=== PATIENT | female | born 1990 | race Hispanic/Latino ===

== ENCOUNTER → 2018-03-17 | Day surgery (SDC) | payer OTHER ==
[~2018-03-17] MED LIST: BUPIVACAINE 0.25% 30ML SDV INJ ONE; DEXAMETHASONE SOD PHOS INJ 4 MG/ML VIAL ONE; DIPHENHYDRAMINE HCL INJ 50 MG/ML VIAL ONE; FAMOTIDINE 20 MG/2 ML VIAL IV ONE; FENTANYL CITRATE/PF 100MCG/2 ML INJ ONE; KETOROLAC TROMETHAMINE 30 MG/ML VIAL ONE; LIDOCAINE HCL 2% JELLY 5 ML TUBE ONE; LIDOCAINE HCL 2% LOCAL INJ 5 ML SDV VIAL INJ ONE; MIDAZOLAM HCL 2 MG/2 ML VIAL ONE; MORPHINE SULFATE INJ 10 MG/ML ONE; MULTIVITAMINS1 EAC7 PO; ONDANSETRON HCL INJ 2 MG/ML VIAL ONE; PROPOFOL IV EMULSION 10 MG/ML 20 ML VIAL ONE; ROCURONIUM BROMIDE 10 MG/ML 5ML VIAL ONE; SEVOFLURANE INHAL SOLN 250 ML PEN BTL ONE
--- NOTE | 2018-03-17 09:51 | Operative Report ---
DATE OF PROCEDURE: March 17, 2018 PREOPERATIVE DIAGNOSES 1. Chronic tonsilliths. 2. Adenotonsillar hypertrophy. 3. Chronic adenotonsillitis. POSTOPERATIVE DIAGNOSES 1. Chronic tonsilliths. 2. Adenotonsillar hypertrophy. 3. Chronic adenotonsillitis. PROCEDURE: Tonsillectomy and adenoidectomy. SIGNIFICANT FINDINGS: Scarred tonsillar beds bilaterally. Copious tonsilliths bilaterally. Mildly enlarged adenoids. HOT BLAST WORKER: None. ANESTHESIA: General endotracheal tube anesthesia. SPECIMENS REMOVED: Tonsils (adenoids coblated). ESTIMATED BLOOD LOSS: Less than 1 mL. COMPLICATIONS: None. INDICATIONS: Patient is a 27-year-old female with an 8-year history of frequent tonsillar infections manifesting as sore throat, odynophagia and enlarged tender tonsillar lymphadenopathy, enlarged erythematous exudative tonsils. Patient experiences 6-7 episodes per year treated maximally with multiple courses of antibiotics. She has frequent tonsilliths. On examination, her tonsils are 3+/3+ and scarred with significant amount of the tonsil stones present within the crypts. She is scheduled for tonsillectomy and adenoidectomy for the treatment of chronic adenotonsillitis, adenotonsillar hypertrophy and chronic tonsilliths. Risks and complications of the procedures were thoroughly discussed with patient and include infection, bleeding, scarring, failure to improve, need for additional operations, damage to teeth, gums, tongue, and lips, chronic pain, voice changes, numbness of the tongue, inability to taste, persistent throat infections, scarring of the pharynx resulting in permanent worse nasal obstruction, leakage of fluid through the nose when drinking liquids, damage to the eustachian tube orifices causing middle ear fluid and hearing loss, need for blood transfusions, damage to surrounding nerves, blood vessels, and muscles. She fully understands and gives consent. PROCEDURE: Patient was taken to the operating room and placed supine on the operating table where general anesthesia was achieved through orotracheal intubation. Eyes were taped. Shoulder roll was placed. Head and body were draped. Table was turned 90 degrees with the head toward the surgeon. Decadron was administered. Kira-Danial mouth gag was inserted without difficulty and placed into suspension on a Stokes stand. There was no evidence of bifid uvula, diastasis of the muscular uvulae or notched hard palate. Red rubber catheters were then inserted into the nose and brought out through the mouth to retract the soft palate. Examination of the nasopharynx with the laryngeal mirror revealed the adenoids to be mildly hypertrophied. Tonsils were 3+/3+ bilaterally and scarred with significant amount of tonsilliths present in both tonsils crypts. The left tonsil was grasped with a tonsillar Allis clamp and was removed with the ArthroCare Coblator on a setting of 6 on cut mode taking care to stay around the capsule of the tonsil. Right tonsil was removed in the same way. Both tonsillar beds were significantly scarred from previous infection. Hemostasis was obtained with the Coblator on a setting of 3 on a coag mode. Following this, the adenoids were then removed with the ArthroCare Coblator on a setting of 8 on cut mode taking care to avoid trauma to the torus tubarius. Hemostasis was obtained with the Coblator on a setting of 3 on coag mode. Injection with 3 mL of 0.25% plain Marcaine was injected into the free edges of the anterior and posterior tonsillar pillars. Thorough irrigation was then performed. Stomach contents was suction with an NG tube. The red rubber catheters and Kira-Danial mouth gag were then removed without difficulty revealing no trauma to the teeth, gums, tongue, and lips. Patient was awakened in the operating room, extubated and taken to the recovery room in good condition. Job#: [id number] ADRIAN CEDENO
== END | disposition home or self-care (01) ==
LOC: OR 06:02
PROVIDERS: ATTEND Otolaryngology
DX: J35.03 Chronic tonsillitis and adenoiditis (principal); A42.9 Actinomycosis, unspecified; G43.909 Migraine, unspecified, not intractable, without status migrainosus; K01.1 Impacted teeth
CPT/HCPCS: 42821; 81025; 88304; J1100; J1200; J1885; J2001 ×2; J2250; J2270; J2405

== ENCOUNTER 2018-03-25 15:15 | Emergency (ER) | payer OTHER ==
[~2018-03-25] VITALS: Ht 157.5 cm; Wt 103.0 kg
[~2018-03-25 15:15] MED LIST changes: -BUPIVACAINE 0.25% 30ML SDV INJ ONE; -DEXAMETHASONE SOD PHOS INJ 4 MG/ML VIAL ONE; -DIPHENHYDRAMINE HCL INJ 50 MG/ML VIAL ONE; -FAMOTIDINE 20 MG/2 ML VIAL IV ONE; -FENTANYL CITRATE/PF 100MCG/2 ML INJ ONE; -KETOROLAC TROMETHAMINE 30 MG/ML VIAL ONE; -LIDOCAINE HCL 2% JELLY 5 ML TUBE ONE; -LIDOCAINE HCL 2% LOCAL INJ 5 ML SDV VIAL INJ ONE; -MIDAZOLAM HCL 2 MG/2 ML VIAL ONE; -MORPHINE SULFATE INJ 10 MG/ML ONE; -ONDANSETRON HCL INJ 2 MG/ML VIAL ONE; -PROPOFOL IV EMULSION 10 MG/ML 20 ML VIAL ONE; -ROCURONIUM BROMIDE 10 MG/ML 5ML VIAL ONE; -SEVOFLURANE INHAL SOLN 250 ML PEN BTL ONE
--- NOTE | 2018-03-25 16:32 | Diagnostic Imaging Report ---
PROCEDURE:X-RAY ABDOMEN - KUB COMPARISON:None. INDICATIONS:ABDOMINAL PAIN, CONSTIPATION FINDINGS: There is a non-obstructed bowel-gas pattern. No evidence of pneumoperitoneum. Moderate colonic stool burden. No calcification overlying renal shadows. There are no acute osseous abnormalities. The lung bases are clear. CONCLUSION: Nonobstructive bowel gas pattern. Moderate colonic stool burden, consistent with history of constipation. Dictated by: Seven Curtis M.D. on 03/25/2018 at 16:37 Electronically approved by: Seven Curtis M.D. on 03/25/2018 at 16:37
== END 2018-03-25 17:42 | disposition home or self-care (01) ==
LOC: ER 15:15
DX: K62.5 Hemorrhage of anus and rectum (principal); K59.00 Constipation, unspecified; K64.4 Residual hemorrhoidal skin tags
CPT/HCPCS: 74018; 81025; 99283

== ENCOUNTER 2018-05-11 08:51 | Emergency (ER) | payer OTHER ==
[~2018-05-11] VITALS: Ht 157.5 cm; Wt 104.3 kg
[2018-05-11] MEDS ORDERED: MORPHINE SULFATE INJ 4 MG/ML INJ IV STA (09:24)
[2018-05-11] MEDS ORDERED: SODIUM CHLORIDE 0.9% 1000ML 1,000 ML IV STA (09:24)
[2018-05-11] MEDS ORDERED: ONDANSETRON HCL INJ 2 MG/ML VIAL IV STA (09:24)
[2018-05-11 09:48] LABS: PREGNANCY TEST, URINE NEGATIVE (NEGATIVE)
[2018-05-11 09:50] LABS: CLARITY,URINE SL CLOUDY (CLEAR); COLOR,URINE YELLOW (YELLOW)
[2018-05-11 09:51] LABS: BILIRUBIN,URINE NEGATIVE (NEGATIVE); KETONES,URINE NEGATIVE (NEGATIVE); LEUKOCYTE ESTERASE ,URINE TRACE (NEGATIVE); NITRITE,URINE NEGATIVE (NEGATIVE); PROTEIN,URINE DIPSTICK NEGATIVE (NEGATIVE); URINE UROBILINOGEN 0.2 mg/dL (0.2 - 1)
[2018-05-11 10:04] LABS: EPITHELIAL CELLS,URINE MODERATE /LPF; WBC,URINE (MAN) 0-5 /HPF (0-5)
[2018-05-11 10:17] LABS: BASOPHILS % 0.2 % (0.0-1.0); EOSINOPHILS # (AUTO) 0.1 (0.0-0.4); HEMATOCRIT 39.6 % (34.2-44.1); LYMPHOCYTES # (AUTO) 0.9 (1.0-3.2); MEAN CORPUSCULAR HEMOGLOBIN 28.7 pg (28-32); MEAN CORPUSCULAR HGB CONC 32.8 g/dL (31-35); MEAN CORPUSCULAR VOLUME 87.4 fL (81-99); MONOCYTES # (AUTO) 0.6 (0.2-0.8); MONOCYTES % 7.6 % (4.4-11.3); NEUTROPHILS # (AUTO) 6.6 (2.1-6.9); PLATELET COUNT 252 x10e3/uL (140-360); RED BLOOD COUNT 4.53 x10e6/uL (3.6-5.1); RED CELL DISTRIBUTION WIDTH 13.2 % (11.7-14.4)
[2018-05-11 10:39] LABS: ALANINE AMINOTRANSFERASE 18 IU/L (0-55); ALBUMIN/GLOBULIN RATIO 1.1 (0.8-2.0); ALKALINE PHOSPHATASE 90 IU/L (40-150); AMYLASE 47 U/L (25-125); ANION GAP 14.8 mmol/L (8-16); BLOOD UREA NITROGEN 11 mg/dL (7-26); BUN/CREATININE RATIO 17 (6-25); CALCIUM 9.2 mg/dL (8.4-10.2); CARBON DIOXIDE 23 mmol/L (22-29); CHLORIDE 103 mmol/L (98-107); CREATININE, SERUM 0.63 mg/dL (0.57-1.11); EST GLOMERULAR FILTRATION RATE > 60 ML/MIN (60-); GLUCOSE 90 mg/dL (74-118); LIPASE 12 U/L (8-78); POTASSIUM 3.8 mmol/L (3.5-5.1); SODIUM 137 mmol/L (136-145)
[2018-05-11] MEDS ORDERED: SODIUM CHLORIDE 0.9% 1000ML 1,000 ML ONE (11:43)
[2018-05-11] MEDS ORDERED: SODIUM CHLORIDE 0.9% 1000ML 1,000 ML IV SCH (11:45)
[2018-05-11 12:27] VITALS: BP 116/68
== END 2018-05-11 12:41 | disposition home or self-care (01) ==
LOC: ER 08:51
DX: R10.84 Generalized abdominal pain (principal); R11.2 Nausea with vomiting, unspecified; R19.7 Diarrhea, unspecified; A08.4 Viral intestinal infection, unspecified; K52.9 Noninfective gastroenteritis and colitis, unspecified; E86.9 Volume depletion, unspecified; E28.2 Polycystic ovarian syndrome
CPT/HCPCS: 36415; 80053; 81001; 81025; 82150; 83690; 85025; 99284; J2270; J2405; J7030

== ENCOUNTER 2018-07-03 16:41 | Emergency (ER) | payer OTHER ==
[~2018-07-03] VITALS: Ht 157.5 cm; Wt 104.3 kg
[2018-07-03] MEDS ORDERED: ASPIRIN 325 MG TAB PO ONE (17:15)
[2018-07-03] MEDS ORDERED: LORAZEPAM INJ 2 MG/ML VIAL IV ONE (17:15)
--- NOTE | 2018-07-03 17:50 | Diagnostic Imaging Report ---
Exam: PA and lateral view of the chest Indication: Chest pain Comparison: None Findings: No consolidations, pleural effusions or pneumothorax. Normal appearance of the cardiomediastinal silhouette and bones. Impression: No acute thoracic abnormality. Signed by: Dr. Toña Long M.D. on 07/03/2018 5:47 PM
[2018-07-03] MEDS ORDERED: KETOROLAC TROMETHAMINE 30 MG/ML VIAL IV STA (17:53)
[2018-07-14] MEDS ORDERED: PRILOSEC OTC20 MG (09:38)
[2018-07-14] MEDS ORDERED: ZOLOFT (09:38)
== END 2018-07-03 19:08 | disposition home or self-care (01) ==
LOC: FSED 16:41
DX: R07.89 Other chest pain (principal)
CPT/HCPCS: 71046; 80053; 81003; 81025; 82553; 84484; 85025; 85379; 99284; J1885; J2060; 93005

== ENCOUNTER → 2018-07-15 | Day surgery (SDC) | payer OTHER ==
[~2018-07-15] MED LIST changes: +FENTANYL CITRATE/PF 100MCG/2 ML INJ ONE; +MIDAZOLAM HCL 2 MG/2 ML VIAL ONE; +PRILOSEC OTC20 MG; +PROPOFOL IV EMULSION 10 MG/ML 20 ML VIAL ONE; +ZOLOFT
--- OUTSIDE RECORDS SUMMARY | 2018-07-15 06:16 | XMS REPORT | Summary of Care ---
Author Author IRENE HOLLINGSWORTH Organization Unknown Address Unknown Phone Unavailable Care Team Providers Care [place] Man Name Role Phone IRENE HOLLINGSWORTH Unavailable Unavailable Unavailable Unavailable Functional Status Name Dates Details Functional status health issues are not documented Status: Name Dates Details Cognitive status health issues are not documented Status: Problems Name Dates Details Elevated BP without diagnosis of hypertension (796.2, R03.0) Status: Active Generalized anxiety disorder (300.02, F41.1) Status: Active GERD without esophagitis (530.81, K21.9) Status: Active Depression screening (V79.0, Z13.31) Status: Active PCOS (polycystic ovarian syndrome) (256.4, E28.2) Status: Active BMI 40.0-44.9, adult (V85.41, Z68.41) Status: Active Medications Name Dates Details PriLOSEC 20 MG CPDR TAKE 1 CAPSULE DAILY R.N. Active Sertraline HCl - 25 MG Oral Tablet 1 tab po qhs x 1 week, then 2 tab po qhs. * Quantity: 60 Refills: 1 IRENE HOLLINGSWORTH * Start : 13-Jul-2018 Active Allergies and Adverse Reactions Name Dates Details No Known Drug Allergies (Allergy) Status: Active Procedures Procedure Dates Details History of [place] tooth extraction Completed History of Tonsillectomy With Adenoidectomy Completed Immunization Name Dates Details Varicella Disease on: Aug-1992 Social History Name Dates Details - Status: Name Dates Details Never smoker Vital Signs Date Test Result Details :56 Physical Findings 6 Status: Comments: PHQ-9 Adult Depression Screening :52 BP Systolic 109 mm[Hg] Status: Comments: Location: LUE; Position: Sitting BP Diastolic 70 mm[Hg] Status: Comments: Location: LUE; Position: Sitting Heart Rate 87 /min Status: :51 Physical Findings 0 Status: Comments: Alcohol Screen - How many times in the past yr have you had 5 (for M) or 4 (for F) or 4 (for all > 65yrs) or more drinks in a day? [id number] Height 62 in Status: Weight 229.375 lb Status: Body Mass Index Calculated 41.95 kg/m2 Status: Body Surface Area Calculated 2.03 m2 Status: Temperature 97.3 f Status: Comments: Method: Temporal Respiration Rate 16 /min Status: Results Date Description Value Details [id number] [[facility]] CMP W/EGFR Glucose 111 mg/dL (Above high threshold) Range: 65-99 BUN 13 mg/dL Range: 6-20 Creatinine 0.49 mg/dL (Below low threshold) Range: 0.57-1.00 eGFR If NonAfricn Am 132 mL/min/1.7 Range: >59 eGFR If Africn Am 152 mL/min/1.7 Range: >59 BUN/Creatinine Ratio 27 (Above high threshold) Range: 9-23 Sodium, Serum 145 mmol/L (Above high threshold) Range: 134-144 Potassium 4.9 mmol/L Range: 3.5-5.2 Chloride 102 mmol/L Range: 96-106 Carbon Dioxide, Total 26 mmol/L Range: 20-29 Calcium, Serum 9.5 mg/dL Range: 8.7-10.2 Protein, Total 7.3 g/dL Range: 6.0-8.5 Albumin 4.6 g/dL Range: 3.5-5.5 Globalulin, Total 2.7 g/dL Range: 1.5-4.5 A/G Ratio 1.7 Range: 1.2-2.2 Bilirubin, Total <0.2 mg/dL Range: 0.0-1.2 Alkaline Phosphatase 119 {IU/L} (Above high threshold) Range: 39-117 AST (SGOT) 10 {IU/L} Range: 0-40 ALT (SGPT) 14 {IU/L} Range: 0-32 [id number] [[facility]] CBC (INCLUDES DIFF/PLT) WBC 6.9 {x10E3/uL} Range: 3.4-10.8 RBC 4.49 {x10E6/uL} Range: 3.77-5.28 Hemoglobin 13.1 g/dL Range: 11.1-15.9 Hematocrit 39.9 % Range: 34.0-46.6 MCV 89 fL Range: 79-97 MCH 29.2 pg Range: 26.6-33.0 MCHC 32.8 g/dL Range: 31.5-35.7 RDW 13.6 % Range: 12.3-15.4 Platelets 302 {x10E3/uL} Range: 150-379 Neutrophils 63 % Range: Not Estab. Lymphs 24 % Range: Not Estab. Monocytes 10 % Range: Not Estab. Eos 3 % Range: Not Estab. Basos 0 % Range: Not Estab. Immature Cells Neutrophils (Absolute) 4.4 {x10E3/uL} Range: 1.4-7.0 Lymphs (Absolute) 1.6 {x10E3/uL} Range: 0.7-3.1 Monocytes(Absolute) 0.7 {x10E3/uL} Range: 0.1-0.9 Eos (Absolute) 0.2 {x10E3/uL} Range: 0.0-0.4 Baso (Absolute) 0.0 {x10E3/uL} Range: 0.0-0.2 Immature Granulocytes 0 % Range: Not Estab. Immature Grans (Abs) 0.0 {x10E3/uL} Range: 0.0-0.1 NRBC Hematology Comments: [id number] [[facility]] TSH, 3RD GENERATION W/REFLEX TO FT4 TSH 0.849 {uIU/mL} Range: 0.450-4.500 Plan of Care Name Dates Details Planned Observations Planned Goals not documented Planned Encounters Appointment; PRINCESS HAWKINS On: 19-Aug-2018 9:00 Interventions Provided Discussion/Summary* labs look good, normal thyroid, kidney, liver function. f/u if she starts the sertraline. Instructions Name Dates Details Instructions not documented Encounters Appointment; PRINCESS AHWKINS Encounter Diagnosis: Problem not documented On: 21-Apr-2018 14:30 Appointment; PRINCESS HAWKINS Encounter Diagnosis: Problem not documented On: 02-Jun-2018 16:15 Appointment; IRENE RIDER P.A. Encounter Diagnosis: Problem not documented On: 10-Jun-2018 14:00 Appointment; IRENE RIDER P.A. Encounter Diagnosis: Problem not documented On: 13-Jul-2018 9:30
[2018-07-15 10:15] VITALS: BP 110/59
--- NOTE | 2018-07-15 13:06 | Operative Report ---
DATE OF PROCEDURE: July 15, 2018 PROCEDURE PERFORMED: Esophagogastroduodenoscopy with biopsies. INDICATIONS FOR EGD: History of heartburn, epigastric pain. MEDICATION: Patient was done under MAC. Please see anesthesiologist's note. PROCEDURE: With the patient in the left lateral decubitus position, the flexible fiberoptic Olympus gastroscope was introduced into the esophagus under direct visualization without any difficulty. A minute submucosal nodule was noted approximately in the mid esophagus, and that was biopsied. There was some patchy erythema noted in the distal esophagus. The scope was then advanced with ease into the stomach. Mucosa overlying the antrum and the body revealed some patchy erythema and mild to moderate edema, and biopsies were obtained and sent to stain for H. pylori. Pylorus appeared to be of normal contour and shape. It was intubated with ease, and the scope was advanced all the way to the 2nd portion of the duodenum. The scope was then withdrawn slowly. Mucosa overlying the proximal 2nd portion and the duodenal bulb appeared to be within normal limits. The scope was then withdrawn back into the stomach and retroflexed. Mucosa overlying the fundus and cardia appeared to be within normal limits. The scope was then straightened out. The stomach was decompressed. Scope was subsequently withdrawn. Patient tolerated the procedure well. IMPRESSION 1. Minute submucosal nodule, approximately mid esophagus, biopsied. 2. Distal esophagitis. 3. Gastritis, biopsied. Biopsies sent to stain for H. pylori. PLAN: Follow up histology. Initiate Protonix 40 mg 1 p.o. q.a.m. a.c. Job#: [id number]
== END | disposition home or self-care (01) ==
LOC: OR 06:14
PROVIDERS: ATTEND Internal Medicine Gastroenterology
DX: K29.70 Gastritis, unspecified, without bleeding (principal); K20.9 Esophagitis, unspecified; K22.8 Other specified diseases of esophagus; E28.2 Polycystic ovarian syndrome; F41.9 Anxiety disorder, unspecified; Z68.41 Body mass index [BMI] 40.0-44.9, adult
CPT/HCPCS: 43239; 81025; J2250; J2704

== ENCOUNTER 2021-09-12 10:43 | Emergency (ER) | payer SELFPAY ==
[~2021-09-12] VITALS: Ht 157.5 cm; Wt 104.3 kg
[~2021-09-12 10:43] MED LIST changes: -FENTANYL CITRATE/PF 100MCG/2 ML INJ ONE; -MIDAZOLAM HCL 2 MG/2 ML VIAL ONE; -PROPOFOL IV EMULSION 10 MG/ML 20 ML VIAL ONE
[2021-09-12] MEDS ORDERED: SODIUM CHLORIDE 0.9% 1000ML 1,000 ML IV STA (10:52)
[2021-09-12 11:13] LABS: BASOPHILS % 0.3 % (0.0-1.0); HEMATOCRIT 43.2 % (34.2-44.1); HEMOGLOBIN 13.7 g/dL (12.0-16.0); LYMPHOCYTES # (AUTO) 1.2 (1.0-3.2); LYMPHOCYTES % 30.6 % (18.0-39.1); MEAN CORPUSCULAR HEMOGLOBIN 28.5 pg (28-32); MEAN CORPUSCULAR HGB CONC 31.7 g/dL (31-35); MEAN CORPUSCULAR VOLUME 89.8 fL (81-99); MONOCYTES # (AUTO) 0.4 (0.2-0.8); MONOCYTES % 10.8 % (4.4-11.3); NEUTROPHILS # (AUTO) 2.3 (2.1-6.9); PLATELET COUNT 157 x10e3/uL (140-360); RED BLOOD COUNT 4.81 x10e6/uL (3.6-5.1); RED CELL DISTRIBUTION WIDTH 12.7 % (11.7-14.4)
[2021-09-12 11:27] LABS: CLARITY,URINE CLEAR (CLEAR); COLOR,URINE YELLOW (YELLOW)
[2021-09-12 11:28] LABS: KETONES,URINE NEGATIVE (NEGATIVE); LEUKOCYTE ESTERASE ,URINE NEGATIVE (NEGATIVE); NITRITE,URINE NEGATIVE (NEGATIVE); PROTEIN,URINE DIPSTICK NEGATIVE (NEGATIVE); URINE UROBILINOGEN 0.2 mg/dL (0.2 - 1)
[2021-09-12 11:36] LABS: ANION GAP 15.6 mmol/L (8-16); CALCIUM 8.9 mg/dL (8.4-10.2); CREATININE, SERUM 0.7 mg/dL (0.57-1.11); POTASSIUM 3.6 mmol/L (3.5-5.1)
[2021-09-12 11:55] LABS: BACTERIA,URINE RARE /HPF; EPITHELIAL CELLS,URINE FEW /LPF; RBC,URINE 0-5 /HPF (0-5); WBC,URINE (MAN) 0-5 /HPF (0-5)
[2021-09-12] MEDS ORDERED: PSEUDOEPHEDRIN120 MG PO ×2 (12:00→12:03)
[2021-09-12] MEDS ORDERED: PROVENTIL HFA6.7 GM INH ×2 (12:00→12:03)
== END 2021-09-12 12:09 | disposition home or self-care (01) ==
LOC: ER 10:52
DX: J06.9 Acute upper respiratory infection, unspecified (principal); R06.02 Shortness of breath; R19.7 Diarrhea, unspecified; R53.1 Weakness; R42 Dizziness and giddiness; E28.2 Polycystic ovarian syndrome; E66.9 Obesity, unspecified
CPT/HCPCS: 36415; 80048; 81001; 81025; 85025; 87086; 93005; 99284; J7030